=== PATIENT | male | born 1945 | race African-American/Black ===

== ENCOUNTER → 2020-12-19 13:47 | Outpatient (BNVA) | payer MEDICARE, SELFPAY | PROVIDERS: PCP Obstetrics & Gynecology; Visit Provider Internal Medicine Cardiovascular Disease | DX: I25.10 Atherosclerotic heart disease of native coronary artery without angina pectoris (principal); I47.1 Supraventricular tachycardia | CPT/HCPCS: 99212 ==

== ENCOUNTER → 2021-12-21 13:03 | Outpatient (BNVA) | payer MEDICARE, MEDICAID, OTHER, SELFPAY | PROVIDERS: PCP Obstetrics & Gynecology; Referring Provider Internal Medicine; Visit Provider Internal Medicine Cardiovascular Disease | DX: I47.1 Supraventricular tachycardia (principal); I25.10 Atherosclerotic heart disease of native coronary artery without angina pectoris | CPT/HCPCS: 93005; 99212 ==

== ENCOUNTER → 2022-12-24 12:18 | Outpatient (BNVA) | payer MEDICARE, OTHER, SELFPAY | PROVIDERS: PCP Internal Medicine; Referring Provider Internal Medicine; Visit Provider Internal Medicine Cardiovascular Disease | DX: I25.10 Atherosclerotic heart disease of native coronary artery without angina pectoris (principal); I47.1 Supraventricular tachycardia | CPT/HCPCS: 93005; 99212 ==

== ENCOUNTER 2022-12-31 08:55 | Outpatient (REF) | payer MEDICARE, MEDICAID, SELFPAY ==
[2022-12-31 10:25] LABS: Cholesterol 120 mg/dL; HDL Cholesterol 38 mg/dL; LDL Cholesterol Calculated 70 mg/dl; Triglycerides 62 mg/dL
== END 2022-12-31 08:56 | disposition home or self-care (01) ==
LOC: HO.LAB 08:55
PROVIDERS: PCP Internal Medicine; Visit Provider Internal Medicine Cardiovascular Disease
DX: I25.10 Atherosclerotic heart disease of native coronary artery without angina pectoris (principal); I47.1 Supraventricular tachycardia; I10 Essential (primary) hypertension
CPT/HCPCS: 36415; 80061

== ENCOUNTER 2023-12-23 12:26 | Outpatient (AMB) | payer MEDICARE, MEDICAID, SELFPAY ==
[2023-12-23 12:32] VITALS: BP 120/70; PULSE 79; BMI 29.9
--- NOTE | 2023-12-23 12:32 | A.OFFVIS_ITS ---
Intake Vital Signs 12/23/23 12:32 Height 5 ft 8 in Weight 196 lb 10.437 oz BMI 29.9 BP 120/70 Blood Pressure Location Lt brachial Position Sitting Pulse 79 Intake Visit Reasons: 1 year fu Intake Note: 1 yr f/up pt its feeling fine. [employer] Worker Required: No Accompanied by: Self / Same As Patient Allergies No Known Allergies [No Known Allergies*] Allergy (Unverified 12/24/22 12:32) Medication List - Last Reconciled 12/23/23 by Quan Godinez MD amlodipine 5 mg PO DAILY atorvastatin 40 mg PO BEDTIME cholecalciferol (vitamin D3) 75 mcg PO DAILY insulin glargine (Lantus U-100 Insulin) 10 units subcut QPM losartan 50 mg PO DAILY metformin 500 mg PO BID metoprolol succinate ER (Toprol XL) 50 mg PO DAILY HPI HPI Comments History of Present Illness Details Hunter comes for follow-up. He has been doing well from cardiac perspective. He has no prolonged palpitation irregular heartbeat. Denies any significant issues with exertion. He has no exertional chest pain or shortness of breath. No orthopnea, PND, leg edema, lightheadedness, syncope. Takes all his medications. [facility] Medical History HTN (hypertension) CAD (coronary artery disease) Atrial tachycardia Surgical History Hx of prostatectomy Hx of cardiac cath Hx of hernia repair Family History Father No problems noted. Mother No problems noted. Social History Alcohol intake: never Patient Tobacco Use Status: Never used Tobacco Review of Systems Const Reports chills, Reports fatigue, Reports fever(s), Reports frequent falls, Reports weakness, Reports weight gain and Reports weight loss ENT Reports dizziness Card Reports chest pain, Reports leg edema, Reports lightheadedness, Reports palpitations, Reports dyspnea and Reports dyspnea on exertion Resp Reports cough, Reports dyspnea and Reports dyspnea on exertion GI Reports hematochezia Musc Reports abnormal gait, Reports muscle weakness, Reports numbness, Reports radia ting pain into limb and Reports tingling Neuro Reports abnormal gait, Reports dizziness, Reports frequent falls, Reports numbness, Reports tingling and Reports weakness Endo Reports fatigue and Reports palpitations Physical Exam Vital Signs: Last Vital Signs Pulse 79 12/23/23 12:32 BP 120/70 12/23/23 12:32 BMI result Body Mass Index 29.9 Const General: cooperative, no acute distress, alert and awake Nutritional Appearance: overweight Orientation/consciousness: patient oriented x3 Limitations: no limitations Neck Neck: Yes trachea midline, Yes supple and Yes no JVD Resp Effort & Inspection: normal respiratory effort Auscultation: clear to auscultation bilaterally Cardio Jugular venous distension: no JVD Palpation: normal PMI Rate: regular rate Rhythm: regular rhythm Heart sounds: S1 normal heart sound present, S2 normal heart sound present and Other heart sounds present (S4 present) Skin General skin exam: no rashes or lesions noted Neuro General: patient oriented x3 and no focal motor deficits Extrem General: Yes no clubbing, cyanosis or edema Psych Appearance: grossly normal Office Procedures EKG Details: EKG shows normal sinus rhythm normal EKG [id number], Complete Assessment & Plan Assessment & Plan (1) Atrial tachycardia: Code(s): I47.1 - Supraventricular tachycardia Plan: Atrial tachycardia which has remained suppressed on metoprolol therapy. Doing well from that perspective. Avoidance of stimulants was discussed. Advised to call me with any worsening symptoms. Continue metoprolol therapy. (2) CAD (coronary artery disease): Code(s): I25.10 - Atherosclerotic heart disease of [place] coronary artery without angina pectoris Plan: Nonobstructive CAD without any new symptoms at this point time. Continue aggressive medical therapy. Continue low-dose aspirin therapy. Continue aggressive risk factor modification. Aggressive management diabetes goal hemoglobin A1c less than 7%. Blood pressure is well optimized, see below. Continue high-intensity statin therapy with target goal LDL less than 70 mg/dL. Advised to call me with any new symptoms. (3) HTN (hypertension): Code(s): I10 - Essential (primary) hypertension Plan: Hypertension which is currently well optimized advised to monitor blood pressure at home and maintain a log. Goal blood pressure less than 130/84. Low-salt diet was discussed advised to maintain heart healthy lifestyle with regular physical activity. Will follow up in the clinic in 1 year's time, sooner p.r.n.. Thank you for allowing me to partake in his care Orders: Orders CA echo transthoracic complete 50 Weeks I47.1 - Supraventricular tachycardia Coding Level of Care Code Est Pt Level 4 (07160) Diagnoses Atrial tachycardia I47.1 CAD (coronary artery disease) I25.10 HTN (hypertension) I10 CPT Codes EKG - CPT: 69688-[id number], Complete ([id number])
== END 2023-12-23 12:55 | disposition home or self-care (01) ==
PROVIDERS: PCP Obstetrics & Gynecology; Visit Provider Internal Medicine Cardiovascular Disease
DX: I47.10 Supraventricular tachycardia, unspecified (principal); I25.10 Atherosclerotic heart disease of native coronary artery without angina pectoris; I10 Essential (primary) hypertension
CPT/HCPCS: 93010; 99214

== ENCOUNTER → 2023-12-23 12:26 | Outpatient (BNVA) | payer MEDICARE, MEDICAID, SELFPAY | PROVIDERS: Visit Provider Internal Medicine Cardiovascular Disease | DX: I47.10 Supraventricular tachycardia, unspecified (principal); I25.10 Atherosclerotic heart disease of native coronary artery without angina pectoris; I10 Essential (primary) hypertension | CPT/HCPCS: 93005; 99212 ==

== ENCOUNTER → 2024-12-07 10:36 | Outpatient (REF) | payer MEDICARE, MEDICAID, SELFPAY ==
--- NOTE | 2024-12-07 10:40 | CA_ITS ---
Transthoracic Echocardiogram Patient (Last, First, Middle): Hunter Simmons, Gender: Male Date of : 1945 Age: 78 Procedure Date: 12/07/2024 Procedure Type: Transthoracic Echocardiogram Location: OP Height: 172.72 cm Weight: 62.14 kg BSA: 1.74 m2 Heart Rate: bpm BP: 100 / 64 mmHg [employer]isse Machine Operator Helper: PAYAM Referring MD: Quan Godinez MD Symptoms: I47.1 - Supraventricular tachycardia Study Quality: Fair ECG Rhythm: Sinus Conclusions: - The left ventricular systolic function is low normal. The calculated ejection fraction is 54% by biplane method. - No obvious valvular pathology seen on this study. - There is mild dilatation of the ascending aorta measuring 4.00 cm. Findings Left Ventricle Normal left ventricular cavity size. The left ventricular systolic function is low normal. The calculated ejection fraction is 54% by biplane method. There is no evidence of regional wall motion abnormalities. Diastolic function is normal for age. There is moderate septal and moderate basal asymmetric hypertrophy. Right Ventricle The right ventricle was not well visualized. There is normal right ventricular systolic function. Possibly enlarged in some views. Atria The left atrium is mildly dilated. The right atrium is moderately dilated. Aortic Valve There is a normal trileaflet aortic valve. There is mild calcification of the aortic valve. There is no aortic valve stenosis. There is no aortic valve regurgitation. Mitral Valve The mitral valve appears normal. There is no mitral valve regurgitation. There is no mitral valve stenosis. Pulmonic Valve The pulmonic valve is likely normal. Tricuspid Valve There is mild tricuspid valve regurgitation. There is no evidence of pulmonary hypertension. Great Vessels The aortic arch is normal in size. There is mild dilatation of the ascending aorta measuring 4.00 cm. Venous The inferior vena cava is normal in size and collapses greater than 50% with inspiration. Pericardium/Pleural There is no evidence of pericardial effusion. Prior Study Comparison Changes noted compared to prior study dated: 01/01/2018. see comment on ascending aorta. Recommendations, Care & Conclusions No obvious valvular pathology seen on this study. Measurements 2D Linear Measurements IVSd: 1.17 0.6-0.9/0.6-1.0 cm LVIDd: 3.90 3.9-5.3/4.2-5.9 cm LVIDd Index: 2.24 2.4-3.2/2.2-3.1 cm/m2 LVIDs: 2.75 2.0-3.6 cm LVPWd: 1.13 0.7-1.1 cm LA Diam: 3.70 2.7-3.8/3.0-4.0 cm LAIDs Index: 2.13 1.5-2.3 cm/m2 LV Mass: 186.17 67-162/88-224 g LV Mass Index: 106.99 43-95/49-115 g/m2 LVOT Diam: 2.20 3.0+(-)1.3 cm 2D Systolic Function EF 4C: 53.70 >55% EF 2C: 55.00 >55% EF BiP: 54.10 >55% Mitral Valve MV Pk E: 0.36 MV PK A: 0.59 MV Decel Time: 397.00 E/A: 0.60 E'Lateral: 10.40 E'Medial: 7.40 E/E' Med: 4.90 E/E' Lat: 3.50 PHT: 116.00 MVA PHT: 1.90 Decel Pierce: 0.91 Aortic Valve AoV Pk Darryl: 1.25 AoV Mn Darryl: 0.82 AoV VTI: 0.23 AoV Pk Grad: 6.00 Aov Mn Grad: 3.00 CHEN Cont.VTI: 2.96 LVOT LVOT Pk Darryl: 1.10 LVOT Mn Darryl: 0.65 LVOT VTI: 0.18 LVOT Pk Grad: 5.00 LVOT Mn Grad: 2.00 LVOT Diam: 2.20 LVOT Area: 3.80 Diastolic Function MV Pk E: 0.36 MV Pk A: 0.59 E/A: 0.60 E'Medial: 7.40 E/E' Med: 4.90 E' Laterial: 10.40 E/E' Lat: 3.50 Right Ventricle TAPSE (mm): 23.00 TVS' Darryl: 11.10 Tricuspid Valve TR Pk Darryl: 2.67 TR Pk Grad: 29.00 RA Press: 3.00 RVSP: 32.00 Great Vessels Aorta Sinus of Valsalva: 3.64 2.0-3.[address] [place]: 3.10 1.7-3.4 cm Ao Asc: 4.00 2.1-3.4 cm Ao Arch: 3.60 Updated in Other Vendor System with Status of Final Adi Preciado MD electronically signed on 12/08/2024 3:59:06 PM with status of Final
== END ==
LOC: HO.CARD 10:36
PROVIDERS: PCP Internal Medicine; Visit Provider Internal Medicine Cardiovascular Disease
DX: I47.10 Supraventricular tachycardia, unspecified (principal)
CPT/HCPCS: 93306

== ENCOUNTER → 2024-12-07 10:40 | Outpatient (BNV) | payer MEDICARE, MEDICAID, SELFPAY | PROVIDERS: PCP Internal Medicine; Visit Provider Internal Medicine | DX: I42.2 Other hypertrophic cardiomyopathy (principal); I35.8 Other nonrheumatic aortic valve disorders; I36.1 Nonrheumatic tricuspid (valve) insufficiency | CPT/HCPCS: 93306 ==

== ENCOUNTER 2025-03-02 12:18 | Outpatient (AMB) | payer MEDICARE, SELFPAY ==
--- NOTE | 2025-03-02 12:23 | MHC.OFFVIS ---
Vital Signs 03/02/25 12:24 Height 5 ft 8 in Weight 167 lb 8.821 oz BMI 25.5 BP 124/70 Blood Pressure Location Lt brachial Position Sitting Pulse 58 Intake Visit Reasons: r/s 12/24/24 1 yr followup w/ekg Intake Note: 1 year follow-up with ekg feeling good Scientific Specialist Required: No Allergies No Known Allergies [No Known Allergies*] Allergy (Unverified 12/24/22 12:32) Medication List - Last Reconciled 03/02/25 by Quan Godinez MD atorvastatin 40 mg PO BEDTIME cholecalciferol (vitamin D3) 75 mcg PO DAILY dabrafenib (Tafinlar) 150 mg PO BID insulin glargine (Lantus U-100 Insulin) 10 units subcut QPM losartan 50 mg PO DAILY metoprolol succinate ER (Toprol XL) 50 mg PO DAILY trametinib (Mekinist) 2 mg PO DAILY HPI Comments Details: Hunter comes for follow-up. He has not had any recent cardiac symptoms. He recently had echocardiogram which showed preserved LV ejection fraction without any major valvular abnormality of wall motion abnormality. He denies any prolonged palpitation irregular heartbeat. Denies any exertional chest pain or shortness of breath. Denies any orthopnea, PND, leg edema. Takes all his medications. Currently undergoing treatment for stage IV lung cancer with immunomodulators [facility] Medical History HTN (hypertension) CAD (coronary artery disease) Atrial tachycardia Surgical History Hx of prostatectomy Hx of cardiac cath Hx of hernia repair Family History Father No problems noted. Mother No problems noted. Social History Alcohol intake: never Patient Tobacco Use Status: Never used Tobacco Review of Systems Const Denies chills, Denies fatigue, Denies fever(s), Denies frequent falls, Denies weakness, Denies weight gain and Denies weight loss ENT Denies dizziness Card Denies chest pain, Denies leg edema, Denies lightheadedness, Denies palpitations, Denies dyspnea, Denies dyspnea on exertion, Denies orthopnea and Denies other (loss of consciousness) Resp Denies cough, Denies dyspnea and Denies dyspnea on exertion GI Denies hematochezia and Denies change in stool character Musc Denies abnormal gait, Denies muscle weakness, Denies numbness, Denies radiating pain into limb and Denies tingling Neuro Denies abnormal gait, Denies dizziness, Denies frequent falls, Denies numbness, Denies tingling and Denies weakness Endo Denies fatigue and Denies palpitations Physical Exam Vital Signs: Last Vital Signs Pulse 58 03/02/25 12:24 BP 124/70 03/02/25 12:24 BMI result Body Mass Index 25.5 Const General: cooperative, no acute distress, alert and awake Nutritional Appearance: overweight Orientation/consciousness: patient oriented x3 Limitations: no limitations Neck Neck: Yes trachea midline, Yes supple and Yes no JVD Resp Effort & Inspection: normal respiratory effort Auscultation: clear to auscultation bilaterally Cardio Jugular venous distension: no JVD Palpation: normal PMI Rate: regular rate Rhythm: regular rhythm Heart sounds: S1 normal heart sound present, S2 normal heart sound present and Other heart sounds present (S4 present) Skin General skin exam: no rashes or lesions noted Neuro General: patient oriented x3 and no focal motor deficits Extrem General: Yes no clubbing, cyanosis or edema Psych Appearance: grossly normal Office Procedures EKG Details: EKG shows sinus bradycardia with occasional PVC with suggestion with LVH with Q-waves in lead 3 and AVF most likely due to abdominal obesity [id number], Complete Assessment & Plan Assessment & Plan (1) CAD (coronary artery disease): Code(s): I25.10 - Atherosclerotic heart disease of [place] coronary artery without angina pectoris Category: Medical Plan: CAD, nonobstructive without any new symptoms. Currently doing well. Continue aggressive medical therapy including high-intensity statin therapy as well as aggressive management diabetes. Goal LDL less than 70 mg/dL. Continue aggressive control blood pressure which is currently well optimized. Encouraged to maintain activity level as tolerated. (2) Atrial tachycardia: Code(s): I47.1 - Supraventricular tachycardia Category: Medical Plan: Atrial tachycardia which has remained suppressed on metoprolol therapy. No recurrent symptoms of rapid heart rate or palpitations. Continue metoprolol therapy avoidance of stimulants was discussed. Follow up in the clinic in 1 year's time, sooner p.r.n.. Thank you for allowing me to partake in his care Coding Level of Care Code Est Pt Level 4 (67572) Complex EM visit Add On G2211 Diagnoses CAD (coronary artery disease) I25.10 Atrial tachycardia I47.1 CPT Codes EKG - CPT: 08902-[id number], Complete ([id number])
[2025-03-02 12:24] VITALS: BP 124/70; PULSE 58; BMI 25.5
== END 2025-03-02 12:54 | disposition home or self-care (01) ==
PROVIDERS: PCP Internal Medicine; Visit Provider Internal Medicine Cardiovascular Disease
DX: I25.10 Atherosclerotic heart disease of native coronary artery without angina pectoris (principal); I47.10 Supraventricular tachycardia, unspecified
CPT/HCPCS: 93010; 99214; G2211

== ENCOUNTER → 2025-03-02 12:18 | Outpatient (BNVA) | payer MEDICARE, SELFPAY | PROVIDERS: PCP Internal Medicine; Visit Provider Internal Medicine Cardiovascular Disease | DX: I25.10 Atherosclerotic heart disease of native coronary artery without angina pectoris (principal); I47.19 Other supraventricular tachycardia; R94.31 Abnormal electrocardiogram [ECG] [EKG]; R00.1 Bradycardia, unspecified; I49.3 Ventricular premature depolarization | CPT/HCPCS: 93005; 99212 ==